=== PATIENT | female | born 1965 | race Caucasian/White ===

== ENCOUNTER 2017-12-06 04:29 | Emergency (ER) | payer OTHER ==
[2017-12-06] MEDS ORDERED: PANTOPRAZOLE SODIUM 40 MG VIAL IVPUSH ONE (04:40)
--- NOTE | 2017-12-06 04:40 | PDOC ---
History of Present Illness - General Chief Complaint: Pain Stated Complaint: ABDOMINAL PAIN Time Seen by Provider: 12/06/17 04:39 History Source: Patient Exam Limitations: No Limitations - History of Present Illness Initial Comments: 12/06/17 04:57 Pt is visiting from [facility]. Timing/Duration: momentarily Severity: mild, moderate Past History - Travel Traveled outside of the country in the last 30 days: No Close contact w/someone who was outside of country & ill: No - Past Medical History Allergies/Adverse Reactions: Allergies Allergy/AdvReac Type Severity Reaction Status Date / Time morphine Allergy Verified 12/06/17 05:11 lorazepam [From Ativan] AdvReac Verified 12/06/17 06:10 Home Medications: Ambulatory Orders Alprazolam [Xanax] 0.5 mg PO BIDAC 12/06/17 Atenolol [Tenormin -] 25 mg PO BID 12/06/17 Budesonide/Formeterol Fumarate [SYMBICORT 160/4.5mcg -] 1 inh PO DAILY 12/06/17 Dicyclomine HCl [Bentyl -] 20 mg PO Q6H PRN 12/06/17 Escitalopram Oxalate [Lexapro -] 20 mg PO DAILY 12/06/17 Hyoscyamine Sulfate [Levsin-Sl] 0.125 mg SL QID 12/06/17 Nebivolol HCl [Bystolic] 10 mg PO BID 12/06/17 Pantoprazole Sodium [Protonix] 40 mg PO DAILY 12/06/17 Phenytoin Na Extended [Dilantin -] 300 mg PO HS 12/06/17 Phenytoin Na Extended [Dilantin -] 400 mg PO DAILY 12/06/17 Promethazine HCl [Phenergan -] 25 mg PO QID 12/06/17 Sennosides [Natural Vegetable Laxative] 8.6 mg PO DAILY 12/06/17 Sennosides [Senna -] 1 tab PO DAILY 12/06/17 *Physical Exam - Physical Exam General Appearance: Yes: Appropriately Dressed, Apparent Distress, Moderate Distress, Thin HEENT: positive: EOMI, CHANDRA Neck: positive: Trachea midline, Supple Respiratory/Chest: positive: Lungs Clear, Normal Breath Sounds. negative: Respiratory Distress Cardiovascular: positive: Regular Rhythm, Regular Rate, S1, S2 Gastrointestinal/Abdominal: positive: Normal Bowel Sounds, Flat, Soft. negative : Pulsatile Mass Musculoskeletal: positive: Normal Inspection. negative: CVA Tenderness Extremity: positive: Normal Capillary Refill, Normal Inspection, Normal Range of Motion Integumentary: positive: Normal Color, Dry, Warm Neurologic: positive: Fully Oriented, Alert Heart Score/ECG Review - History History: Slightly suspicious - Age Age: 45-65 - ECG Intrepretation Rhythm: Regular Rhythm - [place]: Normal - P and PA Delta Wave(s) Present: No WPW: No - QRS Poor R Wave Progression: No Q Wave Present: No - ST and T Early Repolarization: No Non Specific ST-T Wave changes: No - ECG Impressions Normal ECG: Yes Non-specific ST Elevation: No Ischemic Changes: No ED Treatment Course - LABORATORY CBC & Chemistry Diagram: 12/06/17 05:40 12/06/17 05:40 Medical Decision Making - Medical Decision Making 12/06/17 05:32 Patient Name: GAVIOTA ARMENDARIZ Date: 1965 Address: [address] [place] [address] Sex: Female Rx Written Rx Dispensed Drug Strength Quantity Days Supply Prescriber Name 08/22/2014 09/20/2014 DIAZEPAM 5 MG TABLET 30.0000 0 [facility] 08/22/2014 08/22/2014 [facility] 08/28/2014 ACETAMINOPHEN-COD #3 TABLET 20.0000 0 Michael Li 09/23/2014 09/23/2014 HYDROCODON-ACETAMINOPHN 10-325 60.0000 0 [facility]-GlkyJulian 06/21/2014 06/21/2014 HYDROCODON-ACETAMINOPHN 10-325 60.0000 0 Rgccjia-Wj-TzqxJulian 02/16/2014 06/21/2014 DIAZEPAM 5 MG TABLET 30.0000 0 [facility] 02/16/2014 07/19/2014 [facility]/2014 04/20/2014 HYDROCODON-ACETAMINOPHN 10-325 60.0000 0 Acfhytx-Yp-JciiJulian 02/16/2014 02/16/2014 HYDROCODON-ACETAMINOPHN 10-325 60.0000 0 Ltmtrcl-Jh-Hopm, Julian 10/06/2013 11/10/2013 DIAZEPAM 5 MG TABLET 30.0000 0 [facility] Kamila, Julian 10/15/2013 11/10/2013 HYDROCODON-ACETAMINOPHN 10-325 30.0000 0 Oshtlgh-Cp-Ougn, Julian 10/06/2013 02/11/2014 DIAZEPAM 5 MG TABLET 30.0000 0 [facility] Kamila, Julian 10/06/2013 01/08/2014 DIAZEPAM 5 MG TABLET 30.0000 0 [facility]- Kamila, Julian 01/11/2014 01/12/2014 HYDROCODON-ACETAMINOPHN 10-325 30.0000 0 Trqvplu-Cu-Fopx, Julian 12/08/2013 12/08/2013 HYDROCODON-ACETAMINOPHN 10-325 30.0000 0 Urfmyik-Iv-Nhfr, Julian 10/06/2013 12/07/2013 DIAZEPAM 5 MG TABLET 30.0000 0 [facility]Anastacio- Kamila, Julian 12/06/17 05:51 Pt is yelling and screaming for pain. On arrival her HR is <100. She has no abd tenderness and no pulsatile mass. Pt is asking for demerol, dilaudid , or fentanyl. Pt states that she is allerguc to morphine and ativan. She takes xanax for anxiety. She states that [place] and that either food, or anxiety andstress can cause her abd flares of IBD. Pt will have basic labs sent. She is being hydrated, and we treated her pain with Ketamine 10mg; then a repeat dose of ketamine 10mg. Pt will stop writhing to argue with us that she needs narcotics, and she will stop to ask what medication that we gave her. Pt has elevated BP likely due in part to writhing and screaming in her stretcher. Pt also is supposed to take bystolic. However she doesn't take the meds regularly. Pt was given SLNTG x 2 pills and she was given 5mg metorpolol. Finally, after she scknowledged that she takes narcotics for pain, but she denied being addicted or having withdrawal, she was given 1mg dilaudid. Pt's labs are pending. 12/06/17 06:30 Pt's labs are normal and she will be discharged. *DC/Admit/Observation/Transfer Diagnosis at time of Disposition: Abdominal pain, Narcotic dependence - Discharge Dispostion Disposition: HOME Condition at time of disposition: Stable Decision to Admit order: No - Referrals - Patient Instructions Printed Discharge Instructions: Narcotic Abuse, DI for Abdominal Pain-Adult - Post Discharge Activity
[2017-12-06] MEDS ORDERED: KETAMINE HCL 200 MG/20 ML VIAL IVPUSH ONE ×2 (04:54→05:25)
[2017-12-06] MEDS ORDERED: SODIUM CHLORIDE 0.9% 500 ML INFUS.BAG IV ONE (04:58)
[2017-12-06] MEDS ORDERED: KETAMINE HCL 500 MG/10 ML VIAL ONE (05:06)
[2017-12-06 05:11] VITALS: TEMP 98.3; BMI 21.4
[2017-12-06] MEDS ORDERED: NITROGLYCERIN SUBLINGUAL 1/150 0.4 MG TAB SL ONE ×2 (05:24)
[2017-12-06] MEDS ORDERED: METOPROLOL TARTRATE 5 MG/5 ML VIAL ONE (05:28)
[2017-12-06] MEDS ORDERED: HYDROmorphone HCL CARPU-JECT 2 MG/1 ML DISP.SYRIN IVPUSH ONE (05:36)
[2017-12-06] MEDS ORDERED: HYDROmorphone HCl 2 MG/ML VIAL ONE (05:40)
[2017-12-06 06:06] LABS: BASO % 0.6 % (0-2.0); HEMATOCRIT 38.3 % (32.4-45.2); HEMOGLOBIN 12.4 GM/dL (10.7-15.3); LYMPH % 16.7 % (8-40); MCH 29.8 pg (25.7-33.7); MCHC 32.5 g/dl (32.0-36.0); MEAN CELL VOLUME 91.9 fl (80-96); MEAN PLT VOLUME 6.9 fl (7.5-11.1); NEUT % 75.7 % (42.8-82.8); PLATELET COUNT 297 K/MM3 (134-434); RBC 4.17 M/mm3 (3.60-5.2); RDW 15.7 % (11.6-15.6); WHITE BLOOD COUNT 6.8 K/mm3 (4.0-10.0)
[2017-12-06 06:24] LABS: ALBUMIN 4.2 g/dl (3.4-5.0); ALK PHOS 67 U/L (45-117); ANION GAP 11 MMOL/L (8-16); BILIRUBIN,TOTAL 0.2 mg/dL (0.2-1); BLOOD UREA NITROGEN 11 mg/dL (7-18); CALCIUM 9.4 mg/dL (8.5-10.1); CHLORIDE 105 mmol/L (98-107); CO2 27 mmol/L (21-32); CREATININE 0.9 mg/dL (0.55-1.3); GLUCOSE,RANDOM 134 mg/dL (74-106); POTASSIUM 3.8 mmol/L (3.5-5.1); SGOT/AST 39 U/L (15-37); SGPT/ALT 49 U/L (13-61); SODIUM 142 mmol/L (136-145); TOT PROT 7.1 g/dl (6.4-8.2)
[2017-12-06 06:27] LABS: INR 1.03 (0.83-1.09); PROTHROMBIN TIME (PATIENT) 12.1 SEC (9.7-13.0)
[2017-12-06 06:52] VITALS: BP 160/96; PULSE 88
--- NOTE | 2017-12-06 23:15 | EKG ---
Test Reason : Blood Pressure : / mmHG Vent. Rate : 097 BPM Atrial Rate : 097 BPM P-R Int : 174 ms QRS Dur : 068 ms QT Int : 382 ms P-R-T Axes : 067 042 069 degrees QTc Int : 485 ms NORMAL SINUS RHYTHM WITH SINUS ARRHYTHMIA POSSIBLE LEFT ATRIAL ENLARGEMENT PROLONGED QT ABNORMAL ECG NO PREVIOUS ECGS AVAILABLE Confirmed by JACKIE ANDRE MD ([id number]) on 12/06/2017 11:14:40 PM Referred By: Confirmed By:JACKIE ANDRE MD
== END 2017-12-06 06:50 | disposition home or self-care (01) ==
LOC: JER 04:29
PROC: 3E033GC Introduction of Other Therapeutic Substance into Peripheral Vein, Percutaneous Approach (ICD-10-PCS; principal; 2017-12-06)
PROC: 3E033NZ Introduction of Analgesics, Hypnotics, Sedatives into Peripheral Vein, Percutaneous Approach (ICD-10-PCS; 2017-12-06)
PROC: 3E033NZ Introduction of Analgesics, Hypnotics, Sedatives into Peripheral Vein, Percutaneous Approach (ICD-10-PCS; 2017-12-06)
PROC: 3E033NZ Introduction of Analgesics, Hypnotics, Sedatives into Peripheral Vein, Percutaneous Approach (ICD-10-PCS; 2017-12-06)
DX: F11.20 Opioid dependence, uncomplicated (principal); R10.84 Generalized abdominal pain
CPT/HCPCS: 36415; 80053; 85025; 85610; 85651; 86140; 86850; 86900; 86901; 93005; 93010; 99282-25